=== PATIENT | male | born 1995 | race African-American/Black ===

== ENCOUNTER 2017-11-09 02:38 | Emergency (ER) | payer SELFPAY ==
[~2017-11-09] VITALS: Ht 182.9 cm; Wt 65.0 kg
[2017-11-09 02:56] VITALS: BP 138/78; PULSE 77; RESP 16; TEMP 98; O2SAT 99
--- NOTE | 2017-11-09 06:06 | RADRPT ---
EXAM DATE: 11/09/2017 5:57 AM EDT AGE/SEX: 22 years / Male INDICATIONS: Abdominal pain. CLINICAL DATA: This is the patient's initial encounter. Patient reports that signs and symptoms have been present for 1 day and indicates a pain score of 6/10. MEDICAL/SURGICAL HISTORY: None. None. COMPARISON: No prior [facility] exams available for comparison. FINDINGS: The abdominal bowel gas pattern is normal. No abnormal masses, calcifications, or organomegaly is s een. The osseous structures are unremarkable. CONCLUSION: Benign-appearing abdomen. Electronically signed by: Héctor Agrawal MD 11/09/2017 6:05 AM EDT
--- NOTE | 2017-11-09 06:23 | RADRPT ---
EXAM DATE: 11/09/2017 6:17 AM EDT AGE/SEX: 22 years / Male INDICATIONS: Left ankle pain and swelling from a basketball injury five days ago. CLINICAL DATA: This is the patient's initial encounter. Patient reports that signs and symptoms have been present for 4 - 6 days and indicates a pain score of 6/10. MEDICAL/SURGICAL HISTORY: None. None. COMPARISON: No prior [facility] exams available for comparison. FINDINGS: No fracture or subluxation of the left ankle. No significant arthropathy demonstrated. There is soft tissue swelling, mostly lateral. CONCLUSION: Soft tissue swelling without fracture or subluxation. Electronically signed by: Héctor Agrawal MD 11/09/2017 6:21 AM EDT
--- NOTE | 2017-11-09 07:22 | PD ---
HPI Chief Complaint: Injury Time Seen by Provider: 05:12 Travel History International Travel<30 days: No Contact w/Intl Traveler<30days: No Traveled to known affect area: No History of Present Illness HPI Patient is a 22-year-old male who states he injured his left ankle 6 days ago. He played basketball and rolled his ankle but has been walking on it for the last 6 days. He has noted swelling, ecchymosis, and pain which has not worsened but has not improved. He is from [place] and was told to come to [place] because he would be able to get in and out quickly. He also states that he has not had a significant bowel movement since the injury. He has no other complaints at this time. [facility] Past Medical History Medical History: Denies Significant Hx Diminished Hearing: No Tetanus Vaccination: Unknown Influenza Vaccination: No Past Surgical History Surgical History: No Previous Surgery Social History Alcohol Use: No Tobacco Use: No Substance Use: No Allergies-Medications (Allergen,Severity, Reaction): Coded Allergies: No Known Allergies (Unverified , 11/09/17) Review of Systems Except as stated in HPI: all other systems reviewed are Neg Musculoskeletal: Positive: Pain (Left ankle pain) Physical Exam Narrative GENERAL: 22-year-old male in no distress SKIN: Focused skin assessment warm/dry. HEAD: Atraumatic. Normocephalic. EYES: Pupils equal and round. No scleral icterus. No injection or drainage. CARDIOVASCULAR: Regular rate and rhythm. No murmur appreciated. RESPIRATORY: No accessory muscle use. Clear to auscultation. Breath sounds equal bilaterally. GASTROINTESTINAL: Abdomen soft, non-tender, nondistended. Hepatic and splenic margins not palpable. MUSCULOSKELETAL: Left ankle swelling tender on the dorsal surface of the foot proximally at the junction of the tibia. There is ecchymosis, it is not warm to the touch and the presentation is not consistent with cellulitis Data Data Last Documented VS Vital Signs Date Time Temp Pulse Resp B/P (MAP) Pulse Ox O2 Delivery O2 Flow Rate FiO2 11/09/17 07:51 63 18 133/79 (97) 98 11/09/17 02:56 98.0 Orders Orders Abdomen, Kub Only (11/09/17 ) Ankle, Complete ([id number]) (11/09/17 ) Samuel Bandage (11/09/17 07:16) Ed Discharge Order (11/09/17 07:24) Labs Last 24 hours Impressions Ankle X-Ray 11/09/17 0000 Signed Impressions: CONCLUSION: Soft tissue swelling without fracture or subluxation. Abdomen X-Ray 11/09/17 0000 Signed Impressions: CONCLUSION: Benign-appearing abdomen. MDM Medical Decision Making Medical Screen Exam Complete: Yes Emergency Medical Condition: Yes Differential Diagnosis Ankle sprain, ankle strain. ankle fracture Narrative Course Patient was seen and evaluated in the emergency department. His x-rays were negative for acute fracture. He was given an Samuel bandage and offered crutches, he preferred to walk and will elevate as directed. His constipation is likely resulting from the fact that he is inactive because of his ankle injury and he is instructed to use Colace as needed. He is also advised to use Motrin and follow-up with orthopedics should he continue to have difficulties. Diagnosis Primary Impression: Ankle sprain Qualified Codes: S93.409A - Sprain of unspecified ligament of unspecified ankle, initial encounter Patient Instructions: Ankle Sprain (DC), General Instructions Disposition: 01 DISCHARGE HOME Condition: Lila Bowers DO November 09, 2017 07:22
[2017-11-09 07:51] VITALS: BP 133/79
== END 2017-11-09 07:59 | disposition home or self-care (01) ==
LOC: NEPC 02:38
DX: S93.402A Sprain of unspecified ligament of left ankle, initial encounter (principal); X50.9XXA Other and unspecified overexertion or strenuous movements or postures, initial encounter; Y93.67 Activity, basketball
CPT/HCPCS: 73610; 74018; 99284